=== PATIENT | female | born 1975 | race Caucasian/White ===

== ENCOUNTER 2017-04-11 08:44 | Emergency (ER) | payer OTHER ==
--- NOTE | ~2017-04-11 | CR127 ---
[facility] A Service of [facility] RADIOLOGY TEXT RESULTS PATIENT: RADHA MALDONADO LOCATION: [facility] : [birth year] UNIT #: [id number] AGE: [address]: Tor Chou SEX: F ORDER DR: [id number] [address] [address] [id number] E MR#: [id number] Acc #: [id number] NAME: RADHA MALDONADO : 1975 SEX: F STUDY DATE/TIME: 04/11/2017 UNIT: [facility] ROOM: STUDY DESCRIPTION: CR Foot Complete Min 3 View Rt Attending Physician: Tor Chou Ordering Physician: Tor Chou Primary Care Physician: Hugo Levy M.D. MEDICAL IMAGING REPORT This report is preliminary unless electronic signature is present EXAM Right foot 3 views 04/11/2017 at 10:03 hours HISTORY A 41-year-old with 2-day history of right heel pain, painful to bear weight. No known injury. COMPARISON None. FINDINGS AP, lateral and oblique views suggest diffuse edema over the lower extremity and foot. There is no acute fracture or periosteal reaction. There is no dislocation. There is a moderate sized plantar calcaneal spur. IMPRESSION 1. Diffuse lower extremity edema and edema over the dorsum of the foot with no fracture or dislocation. 2. Moderate sized plantar calcaneal spur. Dictated by... Shobha Jerez M.D. THIS IS AN ELECTRONICALLY VERIFIED REPORT Shobha Jerez M.D. at 04/11/2017 12:14 PM JASON/bin TD: 04/11/2017 12:04 JOB #: [id number] MEDICAL IMAGING REPORT [facility] A Service of [facility] RADIOLOGY TEXT RESULTS PATIENT: RADHA MALDONADO LOCATION: [facility] : [birth year] UNIT #: [id number] AGE: [address]: Tor Chou SEX: F ORDER DR: Page 1 of 1 COPY
--- NOTE | ~2017-04-11 | US84 ---
[id number] [facility]. [facility] [address] [facility]. [place], [place] [address] [id number] E MR#: [id number] Acc #: [id number] NAME: RADHA MALDONADO : 1975 SEX: F STUDY DATE/TIME: 04/11/2017 10:47 UNIT: [facility] ROOM: STUDY DESCRIPTION: US LE Veins Complete Radu Stdy Attending Physician: Tor Chou Ordering Physician: Tor Chou Primary Care Physician: Hugo Levy M.D. MEDICAL IMAGING REPORT This report is preliminary unless electronic signature is present EXAM Bilateral lower extremity venous Doppler. HISTORY Swelling of the legs for 2 weeks. Pain right foot for 2 days. FINDINGS Color-flow ricci-scale compression and Doppler spectral waveform analysis was performed of the deep and superficial veins of both legs. Veins are compressible throughout with normal phasicity of flow. No intraluminal filling defects are seen. CONCLUSION Negative lower extremity venous Doppler study. Dictated by... Toni Ford M.D. THIS IS AN ELECTRONICALLY VERIFIED REPORT Toni Ford M.D. at 04/14/2017 5:11 PM SKYE/lynsey TD: 04/11/2017 13:26 JOB #: [id number] MEDICAL IMAGING REPORT Page 1 of 1 COPY
== END 2017-04-11 11:52 | disposition home or self-care (01) ==
LOC: CED 08:44
DX: M77.31 Calcaneal spur, right foot (principal); I10 Essential (primary) hypertension; K21.9 Gastro-esophageal reflux disease without esophagitis; Z90.89 Acquired absence of other organs; Z90.49 Acquired absence of other specified parts of digestive tract; F17.200 Nicotine dependence, unspecified, uncomplicated; Z88.0 Allergy status to penicillin; Z88.1 Allergy status to other antibiotic agents; Z88.5 Allergy status to narcotic agent; Z91.040 Latex allergy status
CPT/HCPCS: 73630; 93970; 96372; 99284; J1885

== ENCOUNTER → 2017-05-05 | Outpatient (CLI) | payer OTHER | END | disposition home or self-care (01) | LOC: CSSDAY 09:00 | DX: L03.119 Cellulitis of unspecified part of limb (principal); Z79.899 Other long term (current) drug therapy | CPT/HCPCS: 96365; 96366; J2407; J7060 ==